=== PATIENT | female | born 1990 | race African-American/Black ===

== ENCOUNTER 2016-05-24 16:21 | Emergency (ER) | payer BC ==
[~2016-05-24] VITALS: Ht 167.6 cm; Wt 67.5 kg
[~2016-05-24 16:21] MED LIST: ALPRAZOLAM0.5 MG PO; BENADRYL25 MG PO; BUTALB-ACETAMI1 EAC2 PO; Benadryl PO; DEPO-PROVER150 MG/ML IM; Daily TPN Order IV; IRON325 M1 PO; MOTRIN800 MG PO; NOHOMEMEDS; NORCO 5/3251 TABLET PO; OXYCODONE-ACET1 EACH PO; PERCOCET 5/31 TABLET PO; PRENATAL TABLE1 EAC3 PO; PROMETHAZINE HC25 M1 PO; PROTONIX40 MG PO; Phenergan IV; Protonix PO; Pyridoxine,Vitamin B PO; REGLAN10 MG PO; SPRINTEC1 EACH PO; SUMATRIPTAN SUC50 MG PO; TOPIRAMATE50 MG PO; TPN IV; TRAMADOL HCL50 MG PO; TYLENOL WITH C1 EACH PO; UNISOM SLEEP AI25 MG PO; VITAMIN B-650 M1 PO; ZOFRAN4 MG PO; Zofran IV
[2016-05-24] MEDS ORDERED: PERCOCET (16:36)
[2016-05-24] MEDS ORDERED: TOPAMAX100 MG PO (16:36)
[2016-05-24] MEDS ORDERED: ZOLOFT100 MG PO (16:36)
[2016-05-24] MEDS ORDERED: XANAX0.5 MG PO (16:36)
[2016-05-24 17:01] LABS: HEMATOCRIT 38.2 % (36.0-46.0); MCH 27.3 PG (29.0-34.0); MCHC 32.5 G/DL (30.0-36.0); MEAN PLAT.VOLUME 11.1 uM^3 (9.5-12.4); PLATELET COUNT 166 K/uL (156-360); RBC DIS.WIDTH-CV 14.4 % (11.8-14.6); RBC DIS.WIDTH-SD 43.6 % (39-53); RED BLOOD COUNT 4.55 M/uL (3.80-5.20); WHITE BLOOD COUNT 7.1 K/uL (4.1-10.2)
[2016-05-24 17:09] LABS: CHLORIDE 113 mEq/L (99-109); POTASSIUM 3.5 mEq/L (3.7-5.4); SODIUM 142 mEq/L (136-147)
[2016-05-24 17:11] LABS: GLUCOSE 90 mg/dL (70-99)
[2016-05-24 17:12] LABS: ANION GAP 7 MEQ/L (2-14)
[2016-05-24 17:15] LABS: GFR ESTIMATE (CALCULATED) > 59 mL/min/; UREA NITROGEN (BUN) 9 mg/dL (9-23)
[2016-05-24 17:25] LABS: QUANTITATIVE HCG < 4.0 MIU/ML
[2016-05-24 19:44] LABS: ADD MIUA? YES; BILIRUBIN NEGATIVE; BLOOD NEGATIVE; COLOR YELLOW ((YELLOW)); GLUCOSE (STRIP) NEGATIVE; KETONES NEGATIVE; LEUKOCYTES NEGATIVE; NITRITE NEGATIVE; PROTEIN (STRIP) NEGATIVE; SPECIFIC GRAVITY 1.017 (1.000-1.030); UROBILINOGEN 0.2 MG/DL (0.2-1.0)
[2016-05-24 20:01] LABS: AMORPHOUS PHOSPHATE CRYSTALS 4+; BACTERIA NONE SEEN /HPF; CASTS NONE SEEN /LPF; CRYSTALS PRESENT; EPITHELIAL CELLS NONE SEEN /HPF; MUCUS NONE SEEN /LPF; RED BLOOD CELLS NONE SEEN /HPF (0-5); WHITE BLOOD CELLS NONE SEEN /HPF (0-5)
[2016-05-24] MEDS ORDERED: FLOMAX0.4 MG PO (21:49)
[2016-05-24] MEDS ORDERED: MOTRIN600 MG PO (21:49)
[2016-05-24] MEDS ORDERED: VIBRAMYCIN100 MG PO (21:49)
[2016-05-24] MEDS ORDERED: NORCO 7.5/321 TABLET PO (21:49)
[2016-05-24 22:00] VITALS: BP 107/55
[2016-05-26 13:27] LABS: CHLAMYDIA TRACHOMATIS NEGATIVE; NEISSERIA GONORRHOEAE NEGATIVE
== END 2016-05-24 22:02 | disposition home or self-care (01) ==
LOC: EME 16:21
PROVIDERS: Physician Assistant
DX: R10.2 Pelvic and perineal pain (principal); Z30.431 Encounter for routine checking of intrauterine contraceptive device; J45.909 Unspecified asthma, uncomplicated; F17.200 Nicotine dependence, unspecified, uncomplicated
CPT/HCPCS: 74000; 76856; 80048; 81003; 84702; 85027; 87210; 87491; 87591; 99281; 99285; J0696; J1885; J2405; J3010; J7030

== ENCOUNTER 2016-05-28 13:15 | Emergency (ER) | payer BC ==
[~2016-05-28] VITALS: Ht 167.6 cm; Wt 68.8 kg
[~2016-05-28 13:15] MED LIST changes: +FLOMAX0.4 MG PO; +MOTRIN600 MG PO; +NORCO 7.5/321 TABLET PO; +PERCOCET; +TOPAMAX100 MG PO; +VIBRAMYCIN100 MG PO; +XANAX0.5 MG PO; +ZOLOFT100 MG PO
[2016-05-28 15:41] LABS: HEMATOCRIT 38.9 % (36.0-46.0); MCH 27.5 PG (29.0-34.0); MCHC 32.6 G/DL (30.0-36.0); MCV 84.4 FL (83-99); PLATELET COUNT 159 K/uL (156-360); RBC DIS.WIDTH-CV 14.2 % (11.8-14.6); RED BLOOD COUNT 4.61 M/uL (3.80-5.20)
[2016-05-28 15:51] LABS: CHLORIDE 111 mEq/L (99-109); POTASSIUM 3.8 mEq/L (3.7-5.4); SODIUM 140 mEq/L (136-147)
[2016-05-28 15:53] LABS: GLUCOSE 86 mg/dL (70-99)
[2016-05-28 15:54] LABS: ANION GAP 7 MEQ/L (2-14)
[2016-05-28 15:55] LABS: TOTAL BILIRUBIN 0.3 mg/dL (0.0-1.0)
[2016-05-28 15:56] LABS: ALKALINE PHOSPHATASE 70 IU/L (3-129)
[2016-05-28 15:57] LABS: GFR ESTIMATE (CALCULATED) > 59 mL/min/
[2016-05-28 15:58] LABS: UREA NITROGEN (BUN) 7 mg/dL (9-23)
[2016-05-28 16:00] LABS: LIPASE 10 U/L (1.0-51.0)
[2016-05-28 16:05] LABS: QUANTITATIVE HCG 16.6 MIU/ML
[2016-05-28] MEDS ORDERED: NORCO 5/3251 TABLET PO (19:36)
[2016-05-28 20:02] VITALS: BP 117/77
== END 2016-05-28 20:03 | disposition home or self-care (01) ==
LOC: EME 13:15
PROVIDERS: Nurse Practitioner Family
DX: R10.32 Left lower quadrant pain (principal); N93.9 Abnormal uterine and vaginal bleeding, unspecified; J45.909 Unspecified asthma, uncomplicated; G89.29 Other chronic pain; F17.200 Nicotine dependence, unspecified, uncomplicated
CPT/HCPCS: 80053; 81003; 83690; 84702; 85027; 99281; 99285; J1885; J2270; J7030

== ENCOUNTER 2016-06-04 16:14 | Emergency (ER) | payer BC ==
[~2016-06-04] VITALS: Ht 167.6 cm; Wt 66.8 kg
[2016-06-04 17:51] LABS: CHLORIDE 115 mEq/L (99-109); POTASSIUM 3.9 mEq/L (3.7-5.4); SODIUM 142 mEq/L (136-147)
[2016-06-04 17:52] LABS: GLUCOSE 82 mg/dL (70-99)
[2016-06-04 17:54] LABS: ANION GAP 9 MEQ/L (2-14)
[2016-06-04 17:56] LABS: GFR ESTIMATE (CALCULATED) > 59 mL/min/
[2016-06-04 17:57] LABS: UREA NITROGEN (BUN) 10 mg/dL (9-23)
[2016-06-04 17:58] LABS: ADD MIUA? YES; BILIRUBIN NEGATIVE; BLOOD SMALL; COLOR YELLOW ((YELLOW)); GLUCOSE (STRIP) NEGATIVE; KETONES NEGATIVE; LEUKOCYTES NEGATIVE; NITRITE NEGATIVE; PROTEIN (STRIP) NEGATIVE; SPECIFIC GRAVITY 1.025 (1.000-1.030); UROBILINOGEN 0.2 MG/DL (0.2-1.0)
[2016-06-04 18:05] LABS: QUANTITATIVE HCG < 4.0 MIU/ML
[2016-06-04 18:05] LABS: BACTERIA NONE SEEN /HPF; EPITHELIAL CELLS RARE /HPF; MUCUS TRACE /LPF; RED BLOOD CELLS 0-5 /HPF (0-5); WHITE BLOOD CELLS 0-5 /HPF (0-5)
[2016-06-04 19:24] LABS: HEMATOCRIT 40.4 % (36.0-46.0); MCHC 33.2 G/DL (30.0-36.0); MCV 84.3 FL (83-99); MEAN PLAT.VOLUME 11.5 uM^3 (9.5-12.4); PLATELET COUNT 161 K/uL (156-360); RBC DIS.WIDTH-CV 14.2 % (11.8-14.6); RBC DIS.WIDTH-SD 43.1 % (39-53); RED BLOOD COUNT 4.79 M/uL (3.80-5.20)
[2016-06-04] MEDS ORDERED: ZOFRAN ODT4 MG PO (20:11)
[2016-06-04] MEDS ORDERED: PERCOCET 5/31 TABLET PO (20:11)
[2016-06-04] MEDS ORDERED: VIBRAMYCIN100 MG PO (20:11)
[2016-06-04 21:09] VITALS: BP 122/76
[2016-06-06 13:29] LABS: CHLAMYDIA TRACHOMATIS NEGATIVE; NEISSERIA GONORRHOEAE NEGATIVE
== END 2016-06-04 21:12 | disposition home or self-care (01) ==
LOC: EME 16:14
PROVIDERS: Nurse Practitioner Family
DX: N73.9 Female pelvic inflammatory disease, unspecified (principal); R11.2 Nausea with vomiting, unspecified; N89.8 Other specified noninflammatory disorders of vagina; F17.200 Nicotine dependence, unspecified, uncomplicated
CPT/HCPCS: 76856; 80048; 81003; 84702; 85027; 87210; 87491; 87591; 99281; 99285; J0696; J1200; J2270; J2405; J3010; J7030

== ENCOUNTER 2016-06-05 16:39 | Emergency (ER) | payer BC ==
[~2016-06-05] VITALS: Ht 167.6 cm; Wt 66.4 kg
[~2016-06-05 16:39] MED LIST changes: +ZOFRAN ODT4 MG PO
[2016-06-05 20:26] VITALS: BP 112/53
== END 2016-06-05 20:27 | disposition home or self-care (01) ==
LOC: EME 16:39
DX: R10.2 Pelvic and perineal pain (principal); R11.2 Nausea with vomiting, unspecified; G89.29 Other chronic pain; Z79.891 Long term (current) use of opiate analgesic; F17.200 Nicotine dependence, unspecified, uncomplicated
CPT/HCPCS: 80048; 81003; 84702; 85027; 99281; 99284; J2405; J7030

== ENCOUNTER 2016-09-01 05:33 | Day surgery (SDC) | payer OTHER ==
[~2016-09-01] VITALS: Ht 167.6 cm; Wt 69.5 kg
[~2016-09-01 05:33] MED LIST changes: +CAMRESE 0.15-01 EACH PO; +FIORICET 50-301 EACH PO
[2016-09-01 06:05] VITALS: BP 125/73
[2016-09-01] MEDS ORDERED: PERCOCET 5/31 TABLET PO (08:36)
[2016-09-01 10:45] VITALS: BP 112/53
[2016-09-01 11:24] VITALS: BP 113/59
== END 2016-09-01 11:38 | disposition home or self-care (01) ==
LOC: SDC 05:33
PROC: 0WPG4YZ Removal of Other Device from Peritoneal Cavity, Percutaneous Endoscopic Approach (ICD-10-PCS; principal; 2016-09-01)
DX: G89.29 Other chronic pain (principal); M79.5 Residual foreign body in soft tissue; R10.2 Pelvic and perineal pain; J45.909 Unspecified asthma, uncomplicated; D69.6 Thrombocytopenia, unspecified; Z81.8 Family history of other mental and behavioral disorders; F17.210 Nicotine dependence, cigarettes, uncomplicated
CPT/HCPCS: J0131; J0330; J1100; J1170; J2250; J2405; J2550; J2710; J3010

== ENCOUNTER 2016-12-31 14:55 | Emergency (ER) | payer OTHER ==
[~2016-12-31] VITALS: Ht 167.6 cm; Wt 53.8 kg
[2016-12-31 16:56] VITALS: BP 119/77
== END 2016-12-31 17:07 | disposition home or self-care (01) ==
LOC: EME 14:55
DX: G43.909 Migraine, unspecified, not intractable, without status migrainosus (principal); Z87.442 Personal history of urinary calculi; Z87.891 Personal history of nicotine dependence; Z88.6 Allergy status to analgesic agent
CPT/HCPCS: 99281; 99284; J1200; J1885; J2765; J7030

== ENCOUNTER 2017-01-12 21:05 | Emergency (ER) | payer OTHER ==
[~2017-01-12] VITALS: Ht 170.2 cm; Wt 71.0 kg
[2017-01-12 22:44] LABS: HEMATOCRIT 40.9 % (36.0-46.0); MCH 27.8 PG (29.0-34.0); MCV 86.7 FL (83-99); MEAN PLAT.VOLUME 11.1 uM^3 (9.5-12.4); PLATELET COUNT 149 K/uL (156-360); RBC DIS.WIDTH-CV 12.6 % (11.8-14.6); RED BLOOD COUNT 4.72 M/uL (3.80-5.20); WHITE BLOOD COUNT 7.3 K/uL (4.1-10.2)
[2017-01-12 22:52] LABS: CHLORIDE 109 mEq/L (99-109); POTASSIUM 3.7 mEq/L (3.7-5.4); SODIUM 145 mEq/L (136-147)
[2017-01-12 22:54] LABS: GLUCOSE 102 mg/dL (70-99)
[2017-01-12 22:55] LABS: ANION GAP 10 MEQ/L (2-14)
[2017-01-12 22:58] LABS: GFR ESTIMATE (CALCULATED) > 59 mL/min/
[2017-01-12 22:59] LABS: UREA NITROGEN (BUN) 6 mg/dL (9-23)
[2017-01-12 23:10] LABS: QUANTITATIVE HCG < 4.0 MIU/ML
[2017-01-13] MEDS ORDERED: DILAUDID4 MG PO (01:04)
[2017-01-13 01:22] VITALS: BP 109/62
== END 2017-01-13 01:23 | disposition home or self-care (01) ==
LOC: RME 21:05 → EME 21:05 → RME 01-13 01:23
PROVIDERS: Physician Assistant
DX: R10.2 Pelvic and perineal pain (principal); J45.909 Unspecified asthma, uncomplicated; G43.909 Migraine, unspecified, not intractable, without status migrainosus; Z87.442 Personal history of urinary calculi; Z87.891 Personal history of nicotine dependence
CPT/HCPCS: 76856; 80048; 84702; 85027; 99281; 99285; J2270; J2405; J7030

== ENCOUNTER 2017-02-08 22:00 | Emergency (ER) | payer OTHER ==
[~2017-02-08] VITALS: Ht 170.2 cm; Wt 74.9 kg
[~2017-02-08 22:00] MED LIST changes: +DILAUDID4 MG PO
[2017-02-08 23:05] LABS: HEMATOCRIT 38.2 % (36.0-46.0); MCH 27.6 PG (29.0-34.0); MCHC 32.7 G/DL (30.0-36.0); MCV 84.3 FL (83-99); MEAN PLAT.VOLUME 11.2 uM^3 (9.5-12.4); PLATELET COUNT 169 K/uL (156-360); RBC DIS.WIDTH-CV 12.4 % (11.8-14.6); RBC DIS.WIDTH-SD 37.5 % (39-53); RED BLOOD COUNT 4.53 M/uL (3.80-5.20); WHITE BLOOD COUNT 7.2 K/uL (4.1-10.2)
[2017-02-08 23:14] LABS: CHLORIDE 107 mEq/L (99-109); POTASSIUM 3.8 mEq/L (3.7-5.4); SODIUM 139 mEq/L (136-147)
[2017-02-08 23:16] LABS: GLUCOSE 83 mg/dL (70-99)
[2017-02-08 23:17] LABS: ADD MIUA? YES; BILIRUBIN NEGATIVE; BLOOD MODERATE; COLOR YELLOW ((YELLOW)); GLUCOSE (STRIP) NEGATIVE; KETONES NEGATIVE; LEUKOCYTES NEGATIVE; NITRITE NEGATIVE; PROTEIN (STRIP) 30; SPECIFIC GRAVITY 1.024 (1.000-1.030)
[2017-02-08 23:17] LABS: ANION GAP 11 MEQ/L (2-14)
[2017-02-08 23:18] LABS: TOTAL BILIRUBIN 0.4 mg/dL (0.0-1.0)
[2017-02-08 23:19] LABS: ALKALINE PHOSPHATASE 69 IU/L (3-129)
[2017-02-08 23:20] LABS: GFR ESTIMATE (CALCULATED) > 59 mL/min/
[2017-02-08 23:21] LABS: UREA NITROGEN (BUN) 10 mg/dL (9-23)
[2017-02-08 23:22] LABS: BACTERIA RARE /HPF; EPITHELIAL CELLS RARE /HPF; MUCUS TRACE /LPF; UCUL ADDED? NO; WHITE BLOOD CELLS 0-5 /HPF (0-5)
[2017-02-08 23:30] LABS: QUANTITATIVE HCG < 4.0 MIU/ML
[2017-02-09] MEDS ORDERED: REGLAN5 MG PO (00:58)
[2017-02-09 01:03] VITALS: BP 107/35
== END 2017-02-09 01:04 | disposition home or self-care (01) ==
LOC: EME 22:00
PROVIDERS: Physician Assistant Medical
DX: N80.9 Endometriosis, unspecified (principal); J45.909 Unspecified asthma, uncomplicated; G43.909 Migraine, unspecified, not intractable, without status migrainosus; Z87.442 Personal history of urinary calculi; Z87.891 Personal history of nicotine dependence; Z88.8 Allergy status to other drugs, medicaments and biological substances
CPT/HCPCS: 76856; 80053; 81003; 83690; 84702; 85027; 99281; 99285; J2270; J2765; J7030

== ENCOUNTER 2017-03-03 15:56 | Emergency (ER) | payer OTHER ==
[~2017-03-03] VITALS: Ht 170.2 cm; Wt 75.5 kg
[~2017-03-03 15:56] MED LIST changes: +REGLAN5 MG PO
[2017-03-03 16:37] LABS: HEMATOCRIT 39.4 % (36.0-46.0); MCH 27.8 PG (29.0-34.0); MCHC 32.5 G/DL (30.0-36.0); MCV 85.7 FL (83-99); MEAN PLAT.VOLUME 11.1 uM^3 (9.5-12.4); PLATELET COUNT 168 K/uL (156-360); RBC DIS.WIDTH-CV 12.6 % (11.8-14.6); RBC DIS.WIDTH-SD 39.2 % (39-53)
[2017-03-03 16:44] LABS: ADD MIUA? YES; BILIRUBIN NEGATIVE; BLOOD LARGE; GLUCOSE (STRIP) NEGATIVE; KETONES NEGATIVE; LEUKOCYTES NEGATIVE; NITRITE NEGATIVE; PROTEIN (STRIP) 30; SPECIFIC GRAVITY 1.005 (1.000-1.030); UROBILINOGEN 0.2 MG/DL (0.2-1.0)
[2017-03-03 16:46] LABS: CHLORIDE 108 mEq/L (99-109); POTASSIUM 3.9 mEq/L (3.7-5.4); SODIUM 139 mEq/L (136-147)
[2017-03-03 16:48] LABS: COLOR RED ((YELLOW))
[2017-03-03 16:48] LABS: GLUCOSE 82 mg/dL (70-99)
[2017-03-03 16:49] LABS: ANION GAP 8 MEQ/L (2-14)
[2017-03-03 16:51] LABS: GFR ESTIMATE (CALCULATED) > 59 mL/min/
[2017-03-03 16:52] LABS: UREA NITROGEN (BUN) 9 mg/dL (9-23)
[2017-03-03 17:03] LABS: BACTERIA RARE /HPF; EPITHELIAL CELLS 1+ /HPF; MUCUS NONE SEEN /LPF; RED BLOOD CELLS TNTC /HPF (0-5); UCUL ADDED? YES; WHITE BLOOD CELLS 0-5 /HPF (0-5)
[2017-03-03] MEDS ORDERED: PHENERGAN25 MG PR (19:01)
[2017-03-03] MEDS ORDERED: ZOFRAN ODT4 MG PO (19:01)
[2017-03-03] MEDS ORDERED: FLOMAX0.4 MG PO (19:01)
[2017-03-03] MEDS ORDERED: TRAMADOL HCL50 MG PO (19:01)
[2017-03-03 19:38] LABS: TOTAL BILIRUBIN 0.6 mg/dL (0.0-1.0)
[2017-03-03 19:39] LABS: ALKALINE PHOSPHATASE 67 IU/L (3-129)
[2017-03-03 19:41] LABS: DIRECT BILIRUBIN 0.1 mg/dL (0.0-0.3)
[2017-03-03 19:42] LABS: LIPASE 11 U/L (1.0-51.0)
[2017-03-03 21:47] VITALS: BP 121/61
== END 2017-03-03 21:48 | disposition home or self-care (01) ==
LOC: EME 15:56
DX: R10.11 Right upper quadrant pain (principal); R31.9 Hematuria, unspecified; K59.00 Constipation, unspecified; Z87.442 Personal history of urinary calculi; G43.909 Migraine, unspecified, not intractable, without status migrainosus; Z87.891 Personal history of nicotine dependence; Z88.6 Allergy status to analgesic agent; Z90.49 Acquired absence of other specified parts of digestive tract
CPT/HCPCS: 74020; 74176; 76705; 76770; 80048; 80076; 81003; 83690; 85027; 87086; 99281; 99285; J1170; J1885; J2270; J2765; J3010; J7030; J7050

== ENCOUNTER 2017-03-23 18:59 | Emergency (ER) | payer OTHER ==
[~2017-03-23] VITALS: Ht 170.2 cm; Wt 77.4 kg
[~2017-03-23 18:59] MED LIST changes: +PHENERGAN25 MG PR
[2017-03-23 19:55] LABS: ADD MIUA? YES; BILIRUBIN SMALL; BLOOD LARGE; COLOR RED ((YELLOW)); GLUCOSE (STRIP) NEGATIVE; KETONES TRACE; PROTEIN (STRIP) 30; SPECIFIC GRAVITY 1.015 (1.000-1.030); UROBILINOGEN 0.2 MG/DL (0.2-1.0)
[2017-03-23 19:58] LABS: HEMATOCRIT 39.8 % (36.0-46.0); MCH 28.4 PG (29.0-34.0); MCHC 32.9 G/DL (30.0-36.0); MCV 86.1 FL (83-99); MEAN PLAT.VOLUME 10.3 uM^3 (9.5-12.4); PLATELET COUNT 168 K/uL (156-360); RBC DIS.WIDTH-CV 13.1 % (11.8-14.6); RED BLOOD COUNT 4.62 M/uL (3.80-5.20); WHITE BLOOD COUNT 9.8 K/uL (4.1-10.2)
[2017-03-23 20:11] LABS: CHLORIDE 107 mEq/L (99-109); POTASSIUM 3.3 mEq/L (3.7-5.4); SODIUM 140 mEq/L (136-147)
[2017-03-23 20:13] LABS: GLUCOSE 78 mg/dL (70-99)
[2017-03-23 20:14] LABS: ANION GAP 10 MEQ/L (2-14)
[2017-03-23 20:17] LABS: GFR ESTIMATE (CALCULATED) > 59 mL/min/
[2017-03-23 20:18] LABS: UREA NITROGEN (BUN) 12 mg/dL (9-23)
[2017-03-23 20:23] LABS: RED BLOOD CELLS TNTC /HPF (0-5)
[2017-03-23 20:25] LABS: QUANTITATIVE HCG < 4.0 MIU/ML
[2017-03-23] MEDS ORDERED: PHENERGAN25 MG PR (21:50)
[2017-03-23] MEDS ORDERED: PERCOCET 5/31 TABLET PO (21:50)
[2017-03-23 22:25] VITALS: BP 102/68
[2017-03-24] MEDS ORDERED: VITAMIN D PO (20:31)
[2017-03-24] MEDS ORDERED: MIRENA1 EACH IY (20:31)
[2017-03-24] MEDS ORDERED: ASPIR 8181 M1 PO (20:32)
== END 2017-03-23 22:27 | disposition home or self-care (01) ==
LOC: EME 18:59
PROVIDERS: Nurse Practitioner Family
DX: N20.0 Calculus of kidney (principal); Z87.442 Personal history of urinary calculi; G43.909 Migraine, unspecified, not intractable, without status migrainosus; Z90.49 Acquired absence of other specified parts of digestive tract; Z87.891 Personal history of nicotine dependence; Z88.6 Allergy status to analgesic agent
CPT/HCPCS: 74176; 80048; 81003; 84702; 85027; 99281; 99284; J1885; J2405; J2550; J3010; J7030

== ENCOUNTER 2017-03-24 18:59 | Emergency (ER) | payer OTHER ==
[~2017-03-24] VITALS: Ht 170.2 cm; Wt 77.3 kg
[2017-03-24 19:29] LABS: ADD MIUA? YES; BILIRUBIN SMALL; BLOOD LARGE; COLOR RED ((YELLOW)); GLUCOSE (STRIP) NEGATIVE; KETONES TRACE; PH, URINE 7.5 (5-8); PROTEIN (STRIP) 30; SPECIFIC GRAVITY 1.015 (1.000-1.030); UROBILINOGEN 0.2 MG/DL (0.2-1.0)
[2017-03-24 19:41] LABS: RED BLOOD CELLS TNTC /HPF (0-5); UCUL ADDED? YES
[2017-03-24] MEDS ORDERED: VITAMIN D PO (20:31)
[2017-03-24] MEDS ORDERED: MIRENA1 EACH IY (20:31)
[2017-03-24] MEDS ORDERED: ASPIR 8181 M1 PO (20:32)
[2017-03-24 20:43] LABS: EOSINOPHIL (%) 2.3 % (0-5); EOSINOPHIL COUNT 0.2 K/uL (0-0.3); HEMATOCRIT 42.5 % (36.0-46.0); IMMATURE GRANULOCYTE (%) 0.5 % (0.0-0.7); INSTRUMENT ABS NEUTROPHIL CT 3.7 K/uL; LYMPHOCYTE COUNT 2.4 K/uL (1.0-2.8); MCH 27.8 PG (29.0-34.0); MCHC 32.2 G/DL (30.0-36.0); MCV 86.2 FL (83-99); MEAN PLAT.VOLUME 11.7 uM^3 (9.5-12.4); MONOCYTE (%) 4.8 % (3-12); MONOCYTE COUNT 0.3 K/uL (0-0.8); NEUTROPHIL (%) 55.9 % (45-76); NEUTROPHIL COUNT 3.7 K/uL (1.8-6.4); PLATELET COUNT 163 K/uL (156-360); RBC DIS.WIDTH-CV 13.3 % (11.8-14.6); RBC DIS.WIDTH-SD 41.5 % (39-53); RED BLOOD COUNT 4.93 M/uL (3.80-5.20); WHITE BLOOD COUNT 6.6 K/uL (4.1-10.2)
[2017-03-24 20:52] LABS: CHLORIDE 110 mEq/L (99-109); POTASSIUM 3.5 mEq/L (3.7-5.4); SODIUM 140 mEq/L (136-147)
[2017-03-24 20:54] LABS: GLUCOSE 74 mg/dL (70-99)
[2017-03-24 20:55] LABS: ANION GAP 10 MEQ/L (2-14)
[2017-03-24 20:58] LABS: GFR ESTIMATE (CALCULATED) > 59 mL/min/
[2017-03-24 20:59] LABS: UREA NITROGEN (BUN) 9 mg/dL (9-23)
[2017-03-25 00:46] VITALS: BP 112/62
[2017-03-25 13:08] LABS: CHLAMYDIA TRACHOMATIS NEGATIVE; NEISSERIA GONORRHOEAE NEGATIVE
== END 2017-03-25 00:49 | disposition home or self-care (01) ==
LOC: EME 18:59
PROVIDERS: Emergency Medicine
DX: R10.9 Unspecified abdominal pain (principal); G89.29 Other chronic pain; R31.9 Hematuria, unspecified; Z87.442 Personal history of urinary calculi; G43.909 Migraine, unspecified, not intractable, without status migrainosus; Z87.891 Personal history of nicotine dependence; Z90.49 Acquired absence of other specified parts of digestive tract; Z88.6 Allergy status to analgesic agent
CPT/HCPCS: 76770; 80048; 81003; 84703; 85025; 87086; 87210; 87491; 87591; 99281; 99285; J2270; J2405; J3010; J7030

== ENCOUNTER → 2017-04-02 | Outpatient (CLI) | payer OTHER ==
[~2017-04-02] VITALS: Ht 167.6 cm; Wt 74.9 kg
[~2017-04-02] MED LIST changes: +ASPIR 8181 M1 PO; +MIRENA1 EACH IY; +NEURONTIN100 MG PO; +VITAMIN D PO
== END | disposition home or self-care (01) ==
LOC: AMB 08:35
PROC: 0DBE8ZX Excision of Large Intestine, Via Natural or Artificial Opening Endoscopic, Diagnostic (ICD-10-PCS; principal; 2017-04-02)
DX: R10.30 Lower abdominal pain, unspecified (principal); D69.6 Thrombocytopenia, unspecified; N94.6 Dysmenorrhea, unspecified; F17.200 Nicotine dependence, unspecified, uncomplicated; G43.909 Migraine, unspecified, not intractable, without status migrainosus; Z88.6 Allergy status to analgesic agent
CPT/HCPCS: 88305; J2250; J2405; J3010

== ENCOUNTER 2017-04-28 20:00 | Emergency (ER) | payer OTHER ==
[~2017-04-28] VITALS: Ht 170.2 cm; Wt 79.5 kg
[2017-04-28 20:19] LABS: APPEARANCE CLEAR ((CLEAR)); BILIRUBIN NEGATIVE; BLOOD SMALL; COLOR STRAW ((YELLOW)); GLUCOSE (STRIP) NEGATIVE; KETONES NEGATIVE; LEUKOCYTES NEGATIVE; NITRITE NEGATIVE; PROTEIN (STRIP) NEGATIVE; SPECIFIC GRAVITY 1.005 (1.000-1.030); UROBILINOGEN 0.2 MG/DL (0.2-1.0)
[2017-04-28 20:30] LABS: HEMATOCRIT 42.6 % (36.0-46.0); HEMOGLOBIN 13.9 G/DL (11.9-15.5); MCH 28.3 PG (29.0-34.0); MCHC 32.6 G/DL (30.0-36.0); MCV 86.6 FL (83-99); PLATELET COUNT 183 K/uL (156-360); RBC DIS.WIDTH-CV 13.6 % (11.8-14.6); RBC DIS.WIDTH-SD 43.8 % (39-53); RED BLOOD COUNT 4.92 M/uL (3.80-5.20); WHITE BLOOD COUNT 7.7 K/uL (4.1-10.2)
[2017-04-28 20:31] LABS: BACTERIA RARE /HPF; EPITHELIAL CELLS 1+ /HPF; MUCUS NONE SEEN /LPF; RED BLOOD CELLS 0-5 /HPF (0-5); UCUL ADDED? NO; WHITE BLOOD CELLS 0-5 /HPF (0-5)
[2017-04-28 20:37] LABS: ALBUMIN 4.7 g/dL (3.2-4.8); CHLORIDE 108 mEq/L (99-109); POTASSIUM 3.7 mEq/L (3.7-5.4); SODIUM 139 mEq/L (136-147)
[2017-04-28 20:39] LABS: GLUCOSE 87 mg/dL (70-99)
[2017-04-28 20:40] LABS: TOTAL PROTEIN 7.5 g/dL (6.4-8.3)
[2017-04-28 20:41] LABS: TOTAL BILIRUBIN 0.2 mg/dL (0.0-1.0)
[2017-04-28 20:43] LABS: ALKALINE PHOSPHATASE 67 IU/L (3-129); CREATININE 0.7 mg/dL (0.6-1.3); GFR ESTIMATE (CALCULATED) > 59 mL/min/
[2017-04-28 20:44] LABS: UREA NITROGEN (BUN) 13 mg/dL (9-23)
[2017-04-28 20:45] LABS: AST (GOT) 14 IU/L (2-34)
[2017-04-28 20:46] LABS: ALT (GPT) 19 IU/L (3-49)
[2017-04-28 20:52] LABS: QUANTITATIVE HCG < 4.0 MIU/ML
[2017-04-28] MEDS ORDERED: PERCOCET 5/31 TABLET PO (22:11)
[2017-04-28 23:15] VITALS: BP 140/83
== END 2017-04-28 23:21 | disposition home or self-care (01) ==
LOC: EME 20:00 → RME 20:00 → EME 20:00 → RME 23:21
DX: R10.2 Pelvic and perineal pain (principal); N93.9 Abnormal uterine and vaginal bleeding, unspecified; R11.2 Nausea with vomiting, unspecified; Z87.442 Personal history of urinary calculi; Z97.5 Presence of (intrauterine) contraceptive device; Z90.49 Acquired absence of other specified parts of digestive tract; Z79.82 Long term (current) use of aspirin; Z87.891 Personal history of nicotine dependence
CPT/HCPCS: 76856; 80053; 81003; 84702; 85027; 99281; 99284; J3010

== ENCOUNTER 2017-05-24 15:06 | Emergency (ER) | payer OTHER ==
[~2017-05-24] VITALS: Ht 170.2 cm; Wt 79.6 kg
[2017-05-24] MEDS ORDERED: VALIUM5 MG PO (16:22)
[2017-05-24] MEDS ORDERED: NORCO 7.5/321 TABLET PO (16:22)
[2017-05-24 17:01] VITALS: BP 109/71
== END 2017-05-24 17:17 | disposition home or self-care (01) ==
LOC: EME 15:06
DX: S16.1XXA Strain of muscle, fascia and tendon at neck level, initial encounter (principal); M54.12 Radiculopathy, cervical region; Y93.C2 Activity, hand held interactive electronic device; Z88.6 Allergy status to analgesic agent
CPT/HCPCS: 99281; 99284; J3010

== ENCOUNTER 2017-06-21 19:55 | Emergency (ER) | payer OTHER ==
[~2017-06-21] VITALS: Ht 167.6 cm; Wt 81.8 kg
[~2017-06-21 19:55] MED LIST changes: +VALIUM5 MG PO
[2017-06-21] MEDS ORDERED: BACTRIM,SEPT1 TABLET PO (21:50)
[2017-06-21] MEDS ORDERED: PERCOCET 5/31 TABLET PO (21:50)
[2017-06-21 22:44] VITALS: BP 121/75
[2017-06-22] MEDS ORDERED: GABAPENTIN100 MG PO (20:37)
[2017-06-22] MEDS ORDERED: BUSPAR5 MG PO (20:38)
[2017-06-22] MEDS ORDERED: TOPIRAMATE25 MG PO (20:38)
[2017-06-22] MEDS ORDERED: IPRATROPIUM BRO15 ML BOTH NARES (20:39)
[2017-06-22] MEDS ORDERED: SERTRALINE HCL100 MG PO (20:39)
== END 2017-06-21 22:45 | disposition home or self-care (01) ==
LOC: EME 19:55
DX: L03.319 Cellulitis of trunk, unspecified (principal); G43.909 Migraine, unspecified, not intractable, without status migrainosus; Z88.6 Allergy status to analgesic agent
CPT/HCPCS: 99281; 99284; J2270

== ENCOUNTER 2017-06-22 17:04 | Observation (INO) | payer OTHER ==
[~2017-06-22] VITALS: Ht 170.2 cm; Wt 81.1 kg
[~2017-06-22 17:04] MED LIST changes: +BACTRIM,SEPT1 TABLET PO
[2017-06-22 18:27] LABS: HEMATOCRIT 42.5 % (36.0-46.0); MCH 28.5 PG (29.0-34.0); MCHC 32.9 G/DL (30.0-36.0); MCV 86.4 FL (83-99); PLATELET COUNT 158 K/uL (156-360); RBC DIS.WIDTH-CV 12.6 % (11.8-14.6); RBC DIS.WIDTH-SD 40.2 % (39-53); RED BLOOD COUNT 4.92 M/uL (3.80-5.20); WHITE BLOOD COUNT 7.2 K/uL (4.1-10.2)
[2017-06-22 18:34] LABS: CHLORIDE 107 mEq/L (99-109); POTASSIUM 4.3 mEq/L (3.7-5.4); SODIUM 140 mEq/L (136-147)
[2017-06-22 18:36] LABS: GLUCOSE 79 mg/dL (70-99)
[2017-06-22 18:40] LABS: CREATININE 0.7 mg/dL (0.6-1.3); GFR ESTIMATE (CALCULATED) > 59 mL/min/
[2017-06-22 18:41] LABS: UREA NITROGEN (BUN) 9 mg/dL (9-23)
[2017-06-22 20:04] LABS: QUANTITATIVE HCG < 4.0 MIU/ML
[2017-06-22] MEDS ORDERED: GABAPENTIN100 MG PO (20:37)
[2017-06-22] MEDS ORDERED: TOPIRAMATE25 MG PO (20:38)
[2017-06-22] MEDS ORDERED: BUSPAR5 MG PO (20:38)
[2017-06-22] MEDS ORDERED: IPRATROPIUM BRO15 ML BOTH NARES (20:39)
[2017-06-22] MEDS ORDERED: SERTRALINE HCL100 MG PO (20:39)
[2017-06-22 21:47] VITALS: BP 106/57
[2017-06-22 23:39] VITALS: BP 116/54
[2017-06-23 05:43] LABS: BASOPHIL (%) 0.2 % (0-1); EOSINOPHIL COUNT 0.1 K/uL (0-0.3); HEMATOCRIT 37.8 % (36.0-46.0); HEMOGLOBIN 12.1 G/DL (11.9-15.5); IMMATURE GRANULOCYTE (%) 0.2 % (0.0-0.7); LYMPHOCYTE (%) 40.5 % (15-42); LYMPHOCYTE COUNT 2.5 K/uL (1.0-2.8); MCH 28.1 PG (29.0-34.0); MCV 87.9 FL (83-99); MONOCYTE (%) 6.9 % (3-12); MONOCYTE COUNT 0.4 K/uL (0-0.8); NEUTROPHIL (%) 50.2 % (45-76); NEUTROPHIL COUNT 3.1 K/uL (1.8-6.4); PLATELET COUNT 135 K/uL (156-360); RBC DIS.WIDTH-SD 41.7 % (39-53); WHITE BLOOD COUNT 6.1 K/uL (4.1-10.2)
[2017-06-23 08:31] VITALS: BP 91/47
[2017-06-23] MEDS ORDERED: LIDOCAINE5 GM TP (10:32)
[2017-06-23] MEDS ORDERED: TYLENOL REGULA325 MG PO (10:32)
[2017-06-23] MEDS ORDERED: TRAMADOL HCL50 MG PO (10:32)
[2017-06-23] MEDS ORDERED: PERCOCET 5/31 TABLET PO (10:32)
[2017-06-23] MEDS ORDERED: BACITRACIN28.4 GM TP (10:32)
[2017-06-23] MEDS ORDERED: ONDANSETRON HCL4 MG PO (10:32)
== END 2017-06-23 11:47 | disposition home or self-care (01) ==
LOC: EME 17:04 → EDOF 20:48 → 5WEST 20:48 → ENRESERV 20:49 → 5WEST 21:43
PROVIDERS: Physician Assistant
DX: L03.317 Cellulitis of buttock (principal); G89.18 Other acute postprocedural pain; R00.0 Tachycardia, unspecified; R11.2 Nausea with vomiting, unspecified; F41.9 Anxiety disorder, unspecified; F32.9 Major depressive disorder, single episode, unspecified; G43.909 Migraine, unspecified, not intractable, without status migrainosus; F17.200 Nicotine dependence, unspecified, uncomplicated; Z88.6 Allergy status to analgesic agent; Z90.49 Acquired absence of other specified parts of digestive tract
CPT/HCPCS: 72193; 80048; 84702; 85025; 85027; 87040; 99281; 99285; G0378; J0295; J2270; J2405; J3010; J7030; J7050

== ENCOUNTER 2017-08-01 12:47 | Emergency (ER) | payer OTHER ==
[~2017-08-01] VITALS: Ht 170.2 cm; Wt 80.7 kg
[~2017-08-01 12:47] MED LIST changes: +BACITRACIN28.4 GM TP; +BUSPAR5 MG PO; +GABAPENTIN100 MG PO; +IPRATROPIUM BRO15 ML BOTH NARES; +LIDOCAINE5 GM TP; +ONDANSETRON HCL4 MG PO; +SERTRALINE HCL100 MG PO; +TOPIRAMATE25 MG PO; +TYLENOL REGULA325 MG PO
[2017-08-01 13:31] LABS: HEMATOCRIT 42.2 % (36.0-46.0); HEMOGLOBIN 14.1 G/DL (11.9-15.5); MCH 28.7 PG (29.0-34.0); MCHC 33.4 G/DL (30.0-36.0); MCV 85.9 FL (83-99); PLATELET COUNT 178 K/uL (156-360); RBC DIS.WIDTH-CV 13.6 % (11.8-14.6); RBC DIS.WIDTH-SD 42.4 % (39-53); RED BLOOD COUNT 4.91 M/uL (3.80-5.20); WHITE BLOOD COUNT 9.5 K/uL (4.1-10.2)
[2017-08-01 14:02] LABS: ALBUMIN 4.4 g/dL (3.2-4.8)
[2017-08-01 14:03] LABS: CHLORIDE 109 mEq/L (99-109); POTASSIUM 3.5 mEq/L (3.7-5.4); SODIUM 138 mEq/L (136-147)
[2017-08-01 14:05] LABS: GLUCOSE 83 mg/dL (70-99)
[2017-08-01 14:07] LABS: TOTAL BILIRUBIN 0.4 mg/dL (0.0-1.0)
[2017-08-01 14:08] LABS: ALKALINE PHOSPHATASE 66 IU/L (3-129)
[2017-08-01 14:09] LABS: CREATININE 0.8 mg/dL (0.6-1.3); GFR ESTIMATE (CALCULATED) > 59 mL/min/
[2017-08-01 14:10] LABS: AST (GOT) 16 IU/L (2-34); UREA NITROGEN (BUN) 11 mg/dL (9-23)
[2017-08-01 14:11] LABS: ALT (GPT) 18 IU/L (3-49)
[2017-08-01 14:17] LABS: QUANTITATIVE HCG < 4.0 MIU/ML
[2017-08-01 17:14] LABS: SOURCE SWAB
[2017-08-01] MEDS ORDERED: ZOFRAN ODT4 MG PO (18:15)
[2017-08-01] MEDS ORDERED: PERCOCET 5/31 TABLET PO (18:15)
[2017-08-01 18:23] VITALS: BP 107/72
[2017-08-01 18:23] LABS: APPEARANCE CLEAR ((CLEAR)); BILIRUBIN NEGATIVE; BLOOD MODERATE; COLOR YELLOW ((YELLOW)); GLUCOSE (STRIP) NEGATIVE; KETONES NEGATIVE; LEUKOCYTES NEGATIVE; NITRITE NEGATIVE; PROTEIN (STRIP) NEGATIVE; SPECIFIC GRAVITY 1.019 (1.000-1.030); UROBILINOGEN 0.2 MG/DL (0.2-1.0)
[2017-08-01 18:25] LABS: BACTERIA NONE SEEN /HPF; EPITHELIAL CELLS RARE /HPF; MUCUS TRACE /LPF; RED BLOOD CELLS 0-5 /HPF (0-5); UCUL ADDED? NO; WHITE BLOOD CELLS 0-5 /HPF (0-5)
== END 2017-08-01 18:30 | disposition home or self-care (01) ==
LOC: EME 12:47
PROVIDERS: Physician Assistant Medical
DX: R10.2 Pelvic and perineal pain (principal); F41.9 Anxiety disorder, unspecified; F32.9 Major depressive disorder, single episode, unspecified; F17.200 Nicotine dependence, unspecified, uncomplicated; Z87.442 Personal history of urinary calculi; Z90.49 Acquired absence of other specified parts of digestive tract; Z88.6 Allergy status to analgesic agent
CPT/HCPCS: 76856; 80053; 81003; 84702; 85027; 87210; 87491; 87591; 99281; 99285; J2405; J3010; J7030

== ENCOUNTER 2017-08-19 23:08 | Emergency (ER) | payer OTHER ==
[~2017-08-19] VITALS: Ht 170.2 cm; Wt 82.6 kg
[2017-08-19 23:56] LABS: HEMATOCRIT 38.1 % (36.0-46.0); HEMOGLOBIN 12.5 G/DL (11.9-15.5); MCH 28.7 PG (29.0-34.0); MCHC 32.8 G/DL (30.0-36.0); MCV 87.4 FL (83-99); PLATELET COUNT 178 K/uL (156-360); RBC DIS.WIDTH-CV 13.6 % (11.8-14.6); RBC DIS.WIDTH-SD 43.1 % (39-53); RED BLOOD COUNT 4.36 M/uL (3.80-5.20); WHITE BLOOD COUNT 7.5 K/uL (4.1-10.2)
[2017-08-20 00:03] LABS: ALBUMIN 4.6 g/dL (3.2-4.8); CHLORIDE 109 mEq/L (99-109); POTASSIUM 3.6 mEq/L (3.7-5.4)
[2017-08-20 00:04] LABS: SODIUM 140 mEq/L (136-147)
[2017-08-20 00:06] LABS: GLUCOSE 91 mg/dL (70-99)
[2017-08-20 00:08] LABS: TOTAL BILIRUBIN 0.6 mg/dL (0.0-1.0)
[2017-08-20 00:09] LABS: ALKALINE PHOSPHATASE 61 IU/L (3-129); CREATININE 0.7 mg/dL (0.6-1.3); GFR ESTIMATE (CALCULATED) > 59 mL/min/
[2017-08-20 00:11] LABS: AST (GOT) 15 IU/L (2-34); UREA NITROGEN (BUN) 11 mg/dL (9-23)
[2017-08-20 00:12] LABS: ALT (GPT) 19 IU/L (3-49)
[2017-08-20 00:13] LABS: LIPASE 12 U/L (1.0-51.0)
[2017-08-20 00:18] LABS: QUANTITATIVE HCG < 4.0 MIU/ML
[2017-08-20 00:28] LABS: APPEARANCE CLOUDY ((CLEAR)); BILIRUBIN NEGATIVE; BLOOD NEGATIVE; COLOR YELLOW ((YELLOW)); GLUCOSE (STRIP) NEGATIVE; KETONES NEGATIVE; LEUKOCYTES NEGATIVE; NITRITE NEGATIVE; PROTEIN (STRIP) NEGATIVE; SPECIFIC GRAVITY 1.015 (1.000-1.030); UROBILINOGEN 0.2 MG/DL (0.2-1.0)
[2017-08-20 00:34] LABS: BACTERIA RARE /HPF; EPITHELIAL CELLS RARE /HPF; MUCUS NONE SEEN /LPF; RED BLOOD CELLS 0-5 /HPF (0-5); UCUL ADDED? NO; WHITE BLOOD CELLS 0-5 /HPF (0-5)
[2017-08-20 01:01] VITALS: BP 111/73
== END 2017-08-20 01:01 | disposition home or self-care (01) ==
LOC: EME 23:08
PROVIDERS: Physician Assistant
DX: R10.9 Unspecified abdominal pain (principal); Z87.442 Personal history of urinary calculi; Z90.49 Acquired absence of other specified parts of digestive tract; F32.9 Major depressive disorder, single episode, unspecified; F41.9 Anxiety disorder, unspecified; F17.200 Nicotine dependence, unspecified, uncomplicated; Z88.6 Allergy status to analgesic agent
CPT/HCPCS: 74018; 76775; 80053; 81003; 83690; 84702; 85027; 99281; 99284; J1885; J3010

== ENCOUNTER 2017-09-09 19:26 | Emergency (ER) | payer OTHER ==
[~2017-09-09] VITALS: Ht 175.3 cm; Wt 78.5 kg
[2017-09-09 21:03] LABS: HEMATOCRIT 43.1 % (36.0-46.0); HEMOGLOBIN 14.2 G/DL (11.9-15.5); MCH 28.9 PG (29.0-34.0); MCHC 32.9 G/DL (30.0-36.0); MCV 87.6 FL (83-99); RBC DIS.WIDTH-CV 13.4 % (11.8-14.6); RBC DIS.WIDTH-SD 43.7 % (39-53); RED BLOOD COUNT 4.92 M/uL (3.80-5.20); WHITE BLOOD COUNT 5.6 K/uL (4.1-10.2)
[2017-09-09 21:12] LABS: ALBUMIN 4.8 g/dL (3.2-4.8); CHLORIDE 111 mEq/L (99-109); POTASSIUM 3.6 mEq/L (3.7-5.4); SODIUM 141 mEq/L (136-147)
[2017-09-09 21:14] LABS: GLUCOSE 85 mg/dL (70-99); TOTAL PROTEIN 7.7 g/dL (6.4-8.3)
[2017-09-09 21:16] LABS: TOTAL BILIRUBIN 0.4 mg/dL (0.0-1.0)
[2017-09-09 21:18] LABS: ALKALINE PHOSPHATASE 68 IU/L (3-129); CREATININE 0.7 mg/dL (0.6-1.3); GFR ESTIMATE (CALCULATED) > 59 mL/min/
[2017-09-09 21:19] LABS: UREA NITROGEN (BUN) 5 mg/dL (9-23)
[2017-09-09 21:20] LABS: AST (GOT) 15 IU/L (2-34)
[2017-09-09 21:21] LABS: ALT (GPT) 17 IU/L (3-49); LIPASE 9 U/L (1.0-51.0)
[2017-09-09 21:27] LABS: QUANTITATIVE HCG < 4.0 MIU/ML
[2017-09-09 22:18] LABS: APPEARANCE CLEAR ((CLEAR)); BILIRUBIN NEGATIVE; BLOOD SMALL; COLOR YELLOW ((YELLOW)); GLUCOSE (STRIP) NEGATIVE; KETONES 5; LEUKOCYTES NEGATIVE; NITRITE NEGATIVE; PROTEIN (STRIP) NEGATIVE; SPECIFIC GRAVITY 1.013 (1.000-1.030); UROBILINOGEN 0.2 MG/DL (0.2-1.0)
[2017-09-09 22:40] LABS: BACTERIA RARE /HPF; EPITHELIAL CELLS RARE /HPF; MUCUS TRACE /LPF; RED BLOOD CELLS 0-5 /HPF (0-5); UCUL ADDED? NO; WHITE BLOOD CELLS 0-5 /HPF (0-5)
[2017-09-09 23:26] LABS: PLAT.SUFFICIENCY ADEQUATE; PLATELET COUNT 172 K/uL (156-360)
[2017-09-10] MEDS ORDERED: PERCOCET 5/31 TABLET PO (00:11)
[2017-09-10] MEDS ORDERED: ZOFRAN4 MG PO (00:11)
[2017-09-10 00:26] VITALS: BP 123/72
== END 2017-09-10 00:26 | disposition home or self-care (01) ==
LOC: RME 19:26 → EME 19:26 → RME 19:26
PROVIDERS: Physician Assistant
DX: N93.9 Abnormal uterine and vaginal bleeding, unspecified (principal); T83.32XA Displacement of intrauterine contraceptive device, initial encounter; Y76.2 Prosthetic and other implants, materials and accessory obstetric and gynecological devices associated with adverse incidents; N80.0 Endometriosis of uterus; F41.9 Anxiety disorder, unspecified; F32.9 Major depressive disorder, single episode, unspecified; F17.200 Nicotine dependence, unspecified, uncomplicated; Z87.442 Personal history of urinary calculi; Z90.49 Acquired absence of other specified parts of digestive tract; Z88.6 Allergy status to analgesic agent
CPT/HCPCS: 76856; 80053; 81003; 83690; 84702; 85027; 86850; 86900; 86901; 99281; 99285; J1885; J2405; J3010; J7030

== ENCOUNTER 2017-09-14 15:26 | Emergency (ER) | payer OTHER ==
[~2017-09-14] VITALS: Ht 170.2 cm; Wt 78.1 kg
[2017-09-14 16:13] LABS: HEMATOCRIT 40.2 % (36.0-46.0); HEMOGLOBIN 13.3 G/DL (11.9-15.5); MCHC 33.1 G/DL (30.0-36.0); MCV 87.6 FL (83-99); PLATELET COUNT 148 K/uL (156-360); RBC DIS.WIDTH-CV 13.1 % (11.8-14.6); RBC DIS.WIDTH-SD 41.6 % (39-53); RED BLOOD COUNT 4.59 M/uL (3.80-5.20); WHITE BLOOD COUNT 5.9 K/uL (4.1-10.2)
[2017-09-14 16:38] LABS: ALBUMIN 4.6 g/dL (3.2-4.8); CHLORIDE 110 mEq/L (99-109); POTASSIUM 3.4 mEq/L (3.7-5.4); SODIUM 142 mEq/L (136-147)
[2017-09-14 16:40] LABS: GLUCOSE 86 mg/dL (70-99)
[2017-09-14 16:44] LABS: ALKALINE PHOSPHATASE 69 IU/L (3-129); CREATININE 0.7 mg/dL (0.6-1.3); GFR ESTIMATE (CALCULATED) > 59 mL/min/
[2017-09-14 16:45] LABS: UREA NITROGEN (BUN) 7 mg/dL (9-23)
[2017-09-14 16:46] LABS: AST (GOT) 20 IU/L (2-34)
[2017-09-14 16:53] LABS: ALT (GPT) 112 IU/L (3-49); TOTAL BILIRUBIN 0.3 mg/dL (0.0-1.0)
[2017-09-14] MEDS ORDERED: LORTAB 10-3251 EACH PO (18:29)
[2017-09-14 18:54] VITALS: BP 104/65
== END 2017-09-14 18:57 | disposition home or self-care (01) ==
LOC: EME 15:26
PROVIDERS: Nurse Practitioner Family
DX: N93.8 Other specified abnormal uterine and vaginal bleeding (principal); N80.9 Endometriosis, unspecified; F32.9 Major depressive disorder, single episode, unspecified; F41.9 Anxiety disorder, unspecified; G43.909 Migraine, unspecified, not intractable, without status migrainosus; Z87.442 Personal history of urinary calculi; Z87.891 Personal history of nicotine dependence; Z90.49 Acquired absence of other specified parts of digestive tract; Z88.6 Allergy status to analgesic agent
CPT/HCPCS: 76856; 80053; 81025; 85027; 99281; 99284

== ENCOUNTER 2017-10-01 19:29 | Emergency (ER) | payer OTHER ==
[~2017-10-01] VITALS: Ht 170.2 cm; Wt 79.4 kg
[~2017-10-01 19:29] MED LIST changes: +LORTAB 10-3251 EACH PO
[2017-10-01 20:01] LABS: HEMATOCRIT 39.5 % (36.0-46.0); HEMOGLOBIN 13.2 G/DL (11.9-15.5); MCHC 33.4 G/DL (30.0-36.0); MCV 86.8 FL (83-99); PLATELET COUNT 159 K/uL (156-360); RBC DIS.WIDTH-CV 12.4 % (11.8-14.6); RBC DIS.WIDTH-SD 39.7 % (39-53); RED BLOOD COUNT 4.55 M/uL (3.80-5.20); WHITE BLOOD COUNT 7.9 K/uL (4.1-10.2)
[2017-10-01 20:14] LABS: ALBUMIN 4.5 g/dL (3.2-4.8); CHLORIDE 107 mEq/L (99-109); POTASSIUM 3.6 mEq/L (3.7-5.4); SODIUM 141 mEq/L (136-147)
[2017-10-01 20:16] LABS: GLUCOSE 91 mg/dL (70-99)
[2017-10-01 20:18] LABS: TOTAL BILIRUBIN 0.4 mg/dL (0.0-1.0)
[2017-10-01 20:20] LABS: ALKALINE PHOSPHATASE 61 IU/L (3-129); CREATININE 0.7 mg/dL (0.6-1.3); GFR ESTIMATE (CALCULATED) > 59 mL/min/
[2017-10-01 20:21] LABS: UREA NITROGEN (BUN) 9 mg/dL (9-23)
[2017-10-01 20:22] LABS: AST (GOT) 14 IU/L (2-34)
[2017-10-01 20:23] LABS: ALT (GPT) 17 IU/L (3-49)
[2017-10-01 20:30] LABS: QUANTITATIVE HCG < 4.0 MIU/ML
[2017-10-01 20:38] LABS: APPEARANCE CLEAR ((CLEAR)); BILIRUBIN NEGATIVE; BLOOD SMALL; COLOR YELLOW ((YELLOW)); GLUCOSE (STRIP) NEGATIVE; KETONES NEGATIVE; LEUKOCYTES NEGATIVE; NITRITE NEGATIVE; PROTEIN (STRIP) NEGATIVE; UROBILINOGEN 0.2 MG/DL (0.2-1.0)
[2017-10-01 20:51] LABS: BACTERIA RARE /HPF; EPITHELIAL CELLS RARE /HPF; MUCUS TRACE /LPF; RED BLOOD CELLS 0-5 /HPF (0-5); UCUL ADDED? NO; WHITE BLOOD CELLS 0-5 /HPF (0-5)
[2017-10-01] MEDS ORDERED: TYLENOL WITH C1 EACH PO (21:48)
[2017-10-01] MEDS ORDERED: PERCOCET 5/31 TABLET PO (21:48)
[2017-10-01] MEDS ORDERED: PHENERGAN25 MG PR (21:48)
[2017-10-01] MEDS ORDERED: REGLAN10 MG PO (21:48)
[2017-10-01 22:33] VITALS: BP 114/78
== END 2017-10-01 22:33 | disposition home or self-care (01) ==
LOC: EME 19:29
DX: R10.2 Pelvic and perineal pain (principal); N80.9 Endometriosis, unspecified; R31.9 Hematuria, unspecified; F41.9 Anxiety disorder, unspecified; F32.9 Major depressive disorder, single episode, unspecified; G43.909 Migraine, unspecified, not intractable, without status migrainosus; Z87.442 Personal history of urinary calculi; Z90.49 Acquired absence of other specified parts of digestive tract; Z87.891 Personal history of nicotine dependence; Z88.6 Allergy status to analgesic agent
CPT/HCPCS: 76856; 80053; 81003; 84702; 85027; 99281; 99285; J2765; J3010; J7030

== ENCOUNTER 2017-10-11 13:33 | Emergency (ER) | payer OTHER ==
[~2017-10-11] VITALS: Ht 167.6 cm; Wt 80.4 kg
[2017-10-11 14:57] LABS: BASOPHIL (%) 0.3 % (0-1); EOSINOPHIL (%) 1.6 % (0-5); EOSINOPHIL COUNT 0.1 K/uL (0-0.3); HEMOGLOBIN 12.4 G/DL (11.9-15.5); IMMATURE GRANULOCYTE (%) 0.1 % (0.0-0.7); LYMPHOCYTE COUNT 2.2 K/uL (1.0-2.8); MCHC 33.5 G/DL (30.0-36.0); MCV 86.7 FL (83-99); MONOCYTE (%) 5.9 % (3-12); MONOCYTE COUNT 0.5 K/uL (0-0.8); NEUTROPHIL (%) 64.1 % (45-76); NEUTROPHIL COUNT 4.9 K/uL (1.8-6.4); PLATELET COUNT 153 K/uL (156-360); RBC DIS.WIDTH-CV 12.6 % (11.8-14.6); RBC DIS.WIDTH-SD 39.6 % (39-53); RED BLOOD COUNT 4.27 M/uL (3.80-5.20); WHITE BLOOD COUNT 7.7 K/uL (4.1-10.2)
[2017-10-11 15:06] LABS: CHLORIDE 106 mEq/L (99-109); POTASSIUM 3.4 mEq/L (3.7-5.4); PTT 29.3 SEC (25-37); SODIUM 139 mEq/L (136-147)
[2017-10-11 15:07] LABS: GLUCOSE 80 mg/dL (70-99)
[2017-10-11 15:11] LABS: CREATININE 0.6 mg/dL (0.6-1.3); GFR ESTIMATE (CALCULATED) > 59 mL/min/
[2017-10-11 15:12] LABS: UREA NITROGEN (BUN) 7 mg/dL (9-23)
[2017-10-11 15:19] LABS: QUANTITATIVE HCG 430.9 MIU/ML
[2017-10-11 18:48] VITALS: BP 132/70
[2017-10-12 06:42] LABS: SOURCE URINE
[2017-10-14 13:33] LABS: CHLAMYDIA TRACHOMATIS NEGATIVE; NEISSERIA GONORRHOEAE NEGATIVE
== END 2017-10-11 18:48 | disposition home or self-care (01) ==
LOC: EME 13:33
PROVIDERS: Emergency Medicine
DX: O26.891 Other specified pregnancy related conditions, first trimester (principal); N80.9 Endometriosis, unspecified; Z3A.01 Less than 8 weeks gestation of pregnancy; Z88.6 Allergy status to analgesic agent; Z87.891 Personal history of nicotine dependence
CPT/HCPCS: 76801; 80048; 84702; 85025; 85610; 85730; 86900; 86901; 87210; 87491; 87591; 99281; 99285; J2270; J2405; J3010; J7030

== ENCOUNTER 2017-10-18 21:41 | Emergency (ER) | payer OTHER ==
[~2017-10-18] VITALS: Ht 167.6 cm; Wt 81.5 kg
[2017-10-19] MEDS ORDERED: ZOFRAN ODT4 MG PO (00:09)
[2017-10-19] MEDS ORDERED: PERCOCET 2.51 TABLET PO (00:09)
[2017-10-19 00:27] VITALS: BP 122/83
== END 2017-10-19 00:28 | disposition home or self-care (01) ==
LOC: EME 21:41
DX: Z48.817 Encounter for surgical aftercare following surgery on the skin and subcutaneous tissue (principal); F32.9 Major depressive disorder, single episode, unspecified; F41.9 Anxiety disorder, unspecified; Z88.6 Allergy status to analgesic agent; Z87.891 Personal history of nicotine dependence
CPT/HCPCS: 99281; 99284; J2405; J3010; J7030

== ENCOUNTER 2017-10-26 23:59 | Emergency (ER) | payer OTHER ==
[~2017-10-26] VITALS: Ht 167.6 cm; Wt 81.9 kg
[~2017-10-26 23:59] MED LIST changes: +PERCOCET 2.51 TABLET PO
[2017-10-27 00:16] LABS: APPEARANCE CLEAR ((CLEAR)); BILIRUBIN NEGATIVE; BLOOD NEGATIVE; COLOR COLORLESS ((YELLOW)); GLUCOSE (STRIP) NEGATIVE; KETONES NEGATIVE; LEUKOCYTES NEGATIVE; NITRITE NEGATIVE; PROTEIN (STRIP) NEGATIVE; SPECIFIC GRAVITY 1.002 (1.000-1.030); UCUL ADDED? NO; UROBILINOGEN 0.2 MG/DL (0.2-1.0)
[2017-10-27 00:30] LABS: HEMATOCRIT 40.1 % (36.0-46.0); HEMOGLOBIN 13.1 G/DL (11.9-15.5); MCH 28.4 PG (29.0-34.0); MCHC 32.7 G/DL (30.0-36.0); PLATELET COUNT 196 K/uL (156-360); RBC DIS.WIDTH-CV 12.4 % (11.8-14.6); RBC DIS.WIDTH-SD 39.5 % (39-53); RED BLOOD COUNT 4.61 M/uL (3.80-5.20); WHITE BLOOD COUNT 11.1 K/uL (4.1-10.2)
[2017-10-27 00:41] LABS: ALBUMIN 4.5 g/dL (3.2-4.8); CHLORIDE 105 mEq/L (99-109); POTASSIUM 3.4 mEq/L (3.7-5.4); SODIUM 138 mEq/L (136-147)
[2017-10-27 00:44] LABS: GLUCOSE 79 mg/dL (70-99); TOTAL PROTEIN 7.3 g/dL (6.4-8.3)
[2017-10-27 00:46] LABS: TOTAL BILIRUBIN 0.3 mg/dL (0.0-1.0)
[2017-10-27 00:47] LABS: ALKALINE PHOSPHATASE 78 IU/L (3-129); CREATININE 0.7 mg/dL (0.6-1.3); GFR ESTIMATE (CALCULATED) > 59 mL/min/
[2017-10-27 00:48] LABS: UREA NITROGEN (BUN) 8 mg/dL (9-23)
[2017-10-27 00:49] LABS: AST (GOT) 15 IU/L (2-34)
[2017-10-27 00:50] LABS: ALT (GPT) 18 IU/L (3-49)
[2017-10-27 00:56] LABS: QUANTITATIVE HCG 10163.5 MIU/ML
[2017-10-27] MEDS ORDERED: NORCO 5/3251 TABLET PO (03:26)
[2017-10-27 04:08] VITALS: BP 106/60
== END 2017-10-27 04:08 | disposition home or self-care (01) ==
LOC: RME 23:59 → EME 23:59 → RME 10-27 04:08
DX: O26.891 Other specified pregnancy related conditions, first trimester (principal); R10.2 Pelvic and perineal pain; Z3A.01 Less than 8 weeks gestation of pregnancy; O99.341 Other mental disorders complicating pregnancy, first trimester; F41.9 Anxiety disorder, unspecified; F32.9 Major depressive disorder, single episode, unspecified; O99.89 Other specified diseases and conditions complicating pregnancy, childbirth and the puerperium; G43.909 Migraine, unspecified, not intractable, without status migrainosus; Z87.891 Personal history of nicotine dependence; Z90.49 Acquired absence of other specified parts of digestive tract; Z87.442 Personal history of urinary calculi; Z88.6 Allergy status to analgesic agent
CPT/HCPCS: 76801; 80053; 81003; 84702; 85027; 87210; 99281; 99284; J2405; J3010; J7030

== ENCOUNTER 2017-10-29 21:12 | Emergency (ER) | payer OTHER ==
[~2017-10-29] VITALS: Ht 167.6 cm; Wt 83.1 kg
[2017-10-29 23:14] VITALS: BP 149/90
== END 2017-10-29 23:14 | disposition home or self-care (01) ==
LOC: EME 21:12
PROC: 0HQ8XZZ Repair Buttock Skin, External Approach (ICD-10-PCS; principal; 2017-10-29)
DX: T81.31XA Disruption of external operation (surgical) wound, not elsewhere classified, initial encounter (principal); Z98.890 Other specified postprocedural states

== ENCOUNTER 2017-11-09 21:13 | Emergency (ER) | payer OTHER ==
[~2017-11-09] VITALS: Ht 170.2 cm; Wt 83.1 kg
[2017-11-09 22:00] LABS: HEMATOCRIT 36.4 % (36.0-46.0); HEMOGLOBIN 12.3 G/DL (11.9-15.5); MCH 28.5 PG (29.0-34.0); MCHC 33.8 G/DL (30.0-36.0); MCV 84.3 FL (83-99); PLATELET COUNT 185 K/uL (156-360); RBC DIS.WIDTH-CV 12.1 % (11.8-14.6); RBC DIS.WIDTH-SD 37.2 % (39-53); RED BLOOD COUNT 4.32 M/uL (3.80-5.20); WHITE BLOOD COUNT 9.6 K/uL (4.1-10.2)
[2017-11-09 22:08] LABS: PTT 27.9 SEC (25-37)
[2017-11-09 22:09] LABS: ALBUMIN 4.5 g/dL (3.2-4.8); CHLORIDE 106 mEq/L (99-109); SODIUM 140 mEq/L (136-147)
[2017-11-09 22:12] LABS: GLUCOSE 90 mg/dL (70-99); TOTAL PROTEIN 7.4 g/dL (6.4-8.3)
[2017-11-09 22:13] LABS: TOTAL BILIRUBIN 0.3 mg/dL (0.0-1.0)
[2017-11-09 22:15] LABS: ALKALINE PHOSPHATASE 62 IU/L (3-129); CREATININE 0.7 mg/dL (0.6-1.3); GFR ESTIMATE (CALCULATED) > 59 mL/min/
[2017-11-09 22:16] LABS: UREA NITROGEN (BUN) 6 mg/dL (9-23)
[2017-11-09 22:17] LABS: AST (GOT) 29 IU/L (2-34); DIRECT BILIRUBIN 0.1 mg/dL (0.0-0.3)
[2017-11-09 22:18] LABS: ALT (GPT) 19 IU/L (3-49)
[2017-11-09 22:40] LABS: QUANTITATIVE HCG 26733.6 MIU/ML
[2017-11-09 22:45] LABS: APPEARANCE CLEAR ((CLEAR)); BILIRUBIN NEGATIVE; BLOOD SMALL; COLOR STRAW ((YELLOW)); GLUCOSE (STRIP) NEGATIVE; KETONES NEGATIVE; LEUKOCYTES NEGATIVE; NITRITE NEGATIVE; PROTEIN (STRIP) NEGATIVE; SPECIFIC GRAVITY 1.006 (1.000-1.030); UROBILINOGEN 0.2 MG/DL (0.2-1.0)
[2017-11-09 22:53] LABS: BACTERIA RARE /HPF; EPITHELIAL CELLS NONE SEEN /HPF; MUCUS TRACE /LPF; RED BLOOD CELLS 0-5 /HPF (0-5); WHITE BLOOD CELLS 0-5 /HPF (0-5)
[2017-11-10] MEDS ORDERED: NORCO 7.5/321 TABLET PO (00:54)
[2017-11-10] MEDS ORDERED: ZOFRAN ODT8 MG PO (00:54)
[2017-11-10 02:36] VITALS: BP 105/46
[2017-11-10] MEDS ORDERED: PRENATAL TABLE1 EAC3 PO (21:42)
== END 2017-11-10 02:37 | disposition home or self-care (01) ==
LOC: EME 21:13
PROVIDERS: Physician Assistant
DX: O20.0 Threatened abortion (principal); O02.0 Blighted ovum and nonhydatidiform mole; Z3A.08 8 weeks gestation of pregnancy; O99.341 Other mental disorders complicating pregnancy, first trimester; F32.9 Major depressive disorder, single episode, unspecified; F41.9 Anxiety disorder, unspecified; Z87.442 Personal history of urinary calculi; Z90.49 Acquired absence of other specified parts of digestive tract; Z88.6 Allergy status to analgesic agent
CPT/HCPCS: 76801; 80048; 80076; 81003; 84702; 85027; 85610; 85730; 86850; 86900; 86901; 99281; 99285; J1200; J2405; J3010; J7030

== ENCOUNTER 2017-11-10 19:37 | Day surgery (SDC) | payer OTHER ==
[~2017-11-10] VITALS: Ht 170.2 cm; Wt 83.5 kg
[~2017-11-10 19:37] MED LIST changes: +ZOFRAN ODT8 MG PO
[2017-11-10 20:23] LABS: HEMOGLOBIN 12.9 G/DL (11.9-15.5); MCHC 33.1 G/DL (30.0-36.0); MCV 84.6 FL (83-99); PLATELET COUNT 182 K/uL (156-360); RBC DIS.WIDTH-CV 12.2 % (11.8-14.6); RBC DIS.WIDTH-SD 37.2 % (39-53); RED BLOOD COUNT 4.61 M/uL (3.80-5.20)
[2017-11-10 20:31] LABS: ALBUMIN 4.4 g/dL (3.2-4.8); CHLORIDE 105 mEq/L (99-109); SODIUM 137 mEq/L (136-147)
[2017-11-10 20:33] LABS: GLUCOSE 89 mg/dL (70-99)
[2017-11-10 20:37] LABS: ALKALINE PHOSPHATASE 56 IU/L (3-129); CREATININE 0.7 mg/dL (0.6-1.3); GFR ESTIMATE (CALCULATED) > 59 mL/min/
[2017-11-10 20:38] LABS: UREA NITROGEN (BUN) 4 mg/dL (9-23)
[2017-11-10 20:39] LABS: AST (GOT) 17 IU/L (2-34); TOTAL BILIRUBIN 1.1 mg/dL (0.0-1.0)
[2017-11-10 20:40] LABS: ALT (GPT) 19 IU/L (3-49)
[2017-11-10 20:54] LABS: APPEARANCE CLEAR ((CLEAR)); BILIRUBIN NEGATIVE; BLOOD SMALL; COLOR STRAW ((YELLOW)); GLUCOSE (STRIP) NEGATIVE; KETONES 20; LEUKOCYTES NEGATIVE; NITRITE NEGATIVE; PROTEIN (STRIP) NEGATIVE; SPECIFIC GRAVITY 1.009 (1.000-1.030); UROBILINOGEN 0.2 MG/DL (0.2-1.0)
[2017-11-10 21:02] LABS: QUANTITATIVE HCG 27048.1 MIU/ML
[2017-11-10 21:11] LABS: BACTERIA NONE SEEN /HPF; EPITHELIAL CELLS RARE /HPF; MUCUS NONE SEEN /LPF; RED BLOOD CELLS 0-5 /HPF (0-5); UCUL ADDED? NO; WHITE BLOOD CELLS 0-5 /HPF (0-5)
[2017-11-10] MEDS ORDERED: PRENATAL TABLE1 EAC3 PO (21:42)
[2017-11-11 00:30] VITALS: BP 105/67
== END 2017-11-11 09:15 | disposition home or self-care (01) ==
LOC: EME 19:37 → RME 19:37 → SDC 11-11 00:30 → 2SOUTH 11-11 01:31 → ENRESERV 11-11 02:03 → 2EAST 11-11 03:36
PROVIDERS: Physician Assistant
PROC: 10D17ZZ Extraction of Products of Conception, Retained, Via Natural or Artificial Opening (ICD-10-PCS; principal; 2017-11-11)
DX: O02.1 Missed abortion (principal); J45.990 Exercise induced bronchospasm; F17.210 Nicotine dependence, cigarettes, uncomplicated
CPT/HCPCS: 80053; 81003; 84702; 85027; 86850; 86870; 86900; 86901; 88305; 99281; 99285; G0378; J1170; J2250; J2270; J2765; J3010; J7030; J7120

== ENCOUNTER 2017-11-13 20:49 | Emergency (ER) | payer OTHER ==
[~2017-11-13] VITALS: Ht 167.6 cm; Wt 83.0 kg
[2017-11-13 21:33] LABS: BASOPHIL (%) 0.3 % (0-1); EOSINOPHIL (%) 1.3 % (0-5); EOSINOPHIL COUNT 0.2 K/uL (0-0.3); HEMATOCRIT 38.1 % (36.0-46.0); HEMOGLOBIN 12.7 G/DL (11.9-15.5); IMMATURE GRANULOCYTE (%) 0.4 % (0.0-0.7); LYMPHOCYTE (%) 24.1 % (15-42); LYMPHOCYTE COUNT 2.7 K/uL (1.0-2.8); MCH 28.2 PG (29.0-34.0); MCHC 33.3 G/DL (30.0-36.0); MCV 84.5 FL (83-99); MONOCYTE (%) 4.1 % (3-12); MONOCYTE COUNT 0.5 K/uL (0-0.8); NEUTROPHIL (%) 69.8 % (45-76); NEUTROPHIL COUNT 7.9 K/uL (1.8-6.4); PLATELET COUNT 186 K/uL (156-360); RBC DIS.WIDTH-SD 36.7 % (39-53); RED BLOOD COUNT 4.51 M/uL (3.80-5.20); WHITE BLOOD COUNT 11.3 K/uL (4.1-10.2)
[2017-11-13 21:54] LABS: PTT 24.3 SEC (25-37)
[2017-11-13 22:14] LABS: CHLORIDE 105 MEQ/L (99-109); POTASSIUM 3.6 MEQ/L (3.7-5.4); SODIUM 140 MEQ/L (136-147)
[2017-11-13 22:20] LABS: CREATININE 0.5 MG/DL (0.6-1.3); GFR ESTIMATE (CALCULATED) > 59 mL/min/; GLUCOSE 83 mg/dL (70-99); UREA NITROGEN (BUN) 6 mg/dL (9-23)
[2017-11-14] MEDS ORDERED: PERCOCET 5/31 TABLET PO (01:50)
[2017-11-14 02:04] VITALS: BP 116/69
== END 2017-11-14 02:05 | disposition home or self-care (01) ==
LOC: EME 20:49
PROVIDERS: Emergency Medicine
DX: R10.30 Lower abdominal pain, unspecified (principal); N93.9 Abnormal uterine and vaginal bleeding, unspecified; Z98.890 Other specified postprocedural states; F32.9 Major depressive disorder, single episode, unspecified; Z87.442 Personal history of urinary calculi; F41.9 Anxiety disorder, unspecified; Z88.6 Allergy status to analgesic agent; F17.200 Nicotine dependence, unspecified, uncomplicated
CPT/HCPCS: 76817; 80048; 84702; 85025; 85610; 85730; 99281; 99285; J1200; J2270; J2405; J3010

== ENCOUNTER 2017-11-18 17:07 | Emergency (ER) | payer OTHER ==
[~2017-11-18] VITALS: Ht 170.2 cm; Wt 79.9 kg
[2017-11-18 18:04] LABS: HEMATOCRIT 40.8 % (36.0-46.0); HEMOGLOBIN 13.4 G/DL (11.9-15.5); MCH 28.2 PG (29.0-34.0); MCHC 32.8 G/DL (30.0-36.0); MCV 85.9 FL (83-99); PLATELET COUNT 216 K/uL (156-360); RBC DIS.WIDTH-CV 12.1 % (11.8-14.6); RBC DIS.WIDTH-SD 38.3 % (39-53); RED BLOOD COUNT 4.75 M/uL (3.80-5.20); WHITE BLOOD COUNT 6.9 K/uL (4.1-10.2)
[2017-11-18 18:19] LABS: ALBUMIN 4.8 g/dL (3.2-4.8)
[2017-11-18 18:20] LABS: CHLORIDE 108 mEq/L (99-109); POTASSIUM 3.5 mEq/L (3.7-5.4); SODIUM 143 mEq/L (136-147)
[2017-11-18 18:22] LABS: GLUCOSE 92 mg/dL (70-99); TOTAL PROTEIN 7.8 g/dL (6.4-8.3)
[2017-11-18 18:24] LABS: TOTAL BILIRUBIN 0.6 mg/dL (0.0-1.0)
[2017-11-18 18:24] LABS: APPEARANCE CLEAR ((CLEAR)); BILIRUBIN NEGATIVE; BLOOD MODERATE; COLOR YELLOW ((YELLOW)); GLUCOSE (STRIP) NEGATIVE; KETONES NEGATIVE; LEUKOCYTES NEGATIVE; NITRITE NEGATIVE; PROTEIN (STRIP) NEGATIVE; SPECIFIC GRAVITY 1.011 (1.000-1.030); UROBILINOGEN 0.2 MG/DL (0.2-1.0)
[2017-11-18 18:25] LABS: ALKALINE PHOSPHATASE 69 IU/L (3-129)
[2017-11-18 18:26] LABS: CREATININE 0.7 mg/dL (0.6-1.3); GFR ESTIMATE (CALCULATED) > 59 mL/min/
[2017-11-18 18:27] LABS: AST (GOT) 14 IU/L (2-34); UREA NITROGEN (BUN) 5 mg/dL (9-23)
[2017-11-18 18:28] LABS: BACTERIA NONE SEEN /HPF; EPITHELIAL CELLS RARE /HPF; MUCUS TRACE /LPF; RED BLOOD CELLS 0-5 /HPF (0-5); UCUL ADDED? NO; WHITE BLOOD CELLS 0-5 /HPF (0-5)
[2017-11-18 18:29] LABS: ALT (GPT) 27 IU/L (3-49)
[2017-11-18 18:36] LABS: QUANTITATIVE HCG 168.8 MIU/ML
[2017-11-18] MEDS ORDERED: METHYLERGONOVI0.2 MG PO (21:30)
[2017-11-18 22:00] VITALS: BP 124/61
== END 2017-11-18 22:00 | disposition home or self-care (01) ==
LOC: EME 17:07
DX: G89.18 Other acute postprocedural pain (principal); R10.30 Lower abdominal pain, unspecified; Z98.890 Other specified postprocedural states; F41.9 Anxiety disorder, unspecified; F32.9 Major depressive disorder, single episode, unspecified; Z87.442 Personal history of urinary calculi; Z90.49 Acquired absence of other specified parts of digestive tract; Z87.891 Personal history of nicotine dependence; Z88.6 Allergy status to analgesic agent
CPT/HCPCS: 76857; 80053; 81003; 84702; 85027; 99281; 99284; J3010; J7030

== ENCOUNTER 2017-12-09 15:35 | Emergency (ER) | payer OTHER ==
[~2017-12-09] VITALS: Ht 170.2 cm; Wt 79.5 kg
[~2017-12-09 15:35] MED LIST changes: +METHYLERGONOVI0.2 MG PO
[2017-12-09 16:43] LABS: HEMATOCRIT 40.9 % (36.0-46.0); HEMOGLOBIN 13.7 G/DL (11.9-15.5); MCHC 33.5 G/DL (30.0-36.0); MCV 83.6 FL (83-99); PLATELET COUNT 187 K/uL (156-360); RBC DIS.WIDTH-CV 12.6 % (11.8-14.6); RBC DIS.WIDTH-SD 38.3 % (39-53); RED BLOOD COUNT 4.89 M/uL (3.80-5.20); WHITE BLOOD COUNT 9.3 K/uL (4.1-10.2)
[2017-12-09 16:57] LABS: APPEARANCE CLEAR ((CLEAR)); BILIRUBIN NEGATIVE; BLOOD SMALL; COLOR STRAW ((YELLOW)); GLUCOSE (STRIP) NEGATIVE; KETONES NEGATIVE; LEUKOCYTES NEGATIVE; NITRITE NEGATIVE; PROTEIN (STRIP) NEGATIVE; SPECIFIC GRAVITY 1.005 (1.000-1.030); UROBILINOGEN 0.2 MG/DL (0.2-1.0)
[2017-12-09 17:00] LABS: ALBUMIN 4.7 g/dL (3.2-4.8); CHLORIDE 106 mEq/L (99-109); POTASSIUM 3.5 mEq/L (3.7-5.4); SODIUM 138 mEq/L (136-147)
[2017-12-09 17:02] LABS: GLUCOSE 79 mg/dL (70-99)
[2017-12-09 17:03] LABS: TOTAL PROTEIN 7.7 g/dL (6.4-8.3)
[2017-12-09 17:04] LABS: TOTAL BILIRUBIN 0.7 mg/dL (0.0-1.0)
[2017-12-09 17:06] LABS: ALKALINE PHOSPHATASE 76 IU/L (3-129); CREATININE 0.7 mg/dL (0.6-1.3); GFR ESTIMATE (CALCULATED) > 59 mL/min/
[2017-12-09 17:07] LABS: UREA NITROGEN (BUN) 8 mg/dL (9-23)
[2017-12-09 17:07] LABS: BACTERIA RARE /HPF; EPITHELIAL CELLS RARE /HPF; MUCUS NONE SEEN /LPF; RED BLOOD CELLS 0-5 /HPF (0-5); UCUL ADDED? NO; WHITE BLOOD CELLS 0-5 /HPF (0-5)
[2017-12-09 17:08] LABS: AST (GOT) 14 IU/L (2-34)
[2017-12-09 17:09] LABS: ALT (GPT) 13 IU/L (3-49)
[2017-12-09 17:15] LABS: QUANTITATIVE HCG < 4.0 MIU/ML
[2017-12-09] MEDS ORDERED: ZOFRAN ODT8 MG PO (18:19)
[2017-12-09] MEDS ORDERED: NORCO 5/3251 TABLET PO (18:19)
[2017-12-09 19:05] VITALS: BP 116/76
== END 2017-12-09 19:08 | disposition home or self-care (01) ==
LOC: EME 15:35
PROVIDERS: Emergency Medicine Emergency Medical Services
DX: R10.2 Pelvic and perineal pain (principal); R11.2 Nausea with vomiting, unspecified; E86.0 Dehydration; R00.2 Palpitations; R42 Dizziness and giddiness; G43.909 Migraine, unspecified, not intractable, without status migrainosus; F41.9 Anxiety disorder, unspecified; F32.9 Major depressive disorder, single episode, unspecified; Z87.442 Personal history of urinary calculi; Z87.891 Personal history of nicotine dependence; Z90.49 Acquired absence of other specified parts of digestive tract; Z88.6 Allergy status to analgesic agent
CPT/HCPCS: 74176; 80053; 81003; 84702; 85027; 99281; 99285; J0780; J2270; J7030